=== PATIENT | female | born 1950 | race Caucasian/White ===

== ENCOUNTER 2019-05-15 14:30 | Outpatient (RCR) | payer MEDICARE, OTHER, SELFPAY ==
--- NOTE | 2019-03-03 09:51 | HP.OTEVAL ---
Patient's Visit Information ROCIO YNA is a 69 year old F, referred to Occupational Therapy by Yan Aj MD, with a diagnosis of left wrist fx intraticular. Date of Evaluation: 03/02/19 Occupational Therapist: SHAYNE Mehta/Leigha, CHT - Subjective Subjective: This 69 year old female was seen for OT eval with dx of left wrist fx. pt has sx on 2018 -pt 7 weeks s/p ORIF - pt states she was in soft sx splint for 2 weeks had stiches removed and then was placed in a brace until this week - Pt is concerned with left MF IF and thumb tingling/numb sensation. pt is limited with ADLs and IADLS at this time due to limited ROM and strength. - Pain left wrist Pain Intensity Range: 0, 4 - ROM Wrist: right 60/65 left 30/20 ROM Comments: pt demo left MCP flex 15* less than unaffected - Strength Health Care Law Specialist: right 55# left 5# Lateral Pinch: right 8# left 2# Tripod Pinch: right 10# left 2# - Edema Wrist: right 15cm left 17cm PIP: right 5.5 left MF 6.2 Proximal Phalanx: right 17cm left 18.5cm - Sensation Thumb: right 2.83 left 2.83 Index: right 2.83 left 2.83 Middle: right 2.83 left 3.61 Ring: right 2.83 left 2.83 Little: right 2.83 left 2.83 - Quick DASH-Disab of Arm,Shoulder& Hand Quick DASH Score: 60.0000 - Hand/Wrist Evaluation Total Score of Pain & Functional Sections: 61 - Goals Goal:: PT will demo an increase in segmental paving supervisor strength by 30# to increase independent with basic occupations of daily living to return pt to PLOF by D/C. Pt will demo an increase in lateral and tripod pinch by 4# to increase pts independent with opening baggies, containers at PLOF by D/C. Goal:: Pt will demo an increase in wrist ROM equal to unaffected wrist to return pt to PLOF with grooming, dressing and home mtg tasks by D/C. Goal:: Pt will report pain no greater than 1/10 with use of affected hand with BADLs and IADLs by d/c. Goal:: Pt will demo improvements in sensation throughout the Med. N. distribution testing at monofilament of 2.83 by d/c - Rehabilitation General Assessment: S/P 7 weeks ORIF left radius. Pt demo with weakness, edema, limited ROM of wrist and MCPs. pt demo need for skilled OT services 2x week for 6 weeks to return pt to IND. level with ADLs and IADLS. Today pt was ed.on wrist AROM, PROM, scar mtg, edema control janice. and ed. that therapy will initiate PRE to return pt to PLOF- pt was given handout and demo understanding of ex and agree to POC. Rehabilitation Potential: Good - Anticipated Interventions Anticipated Interventions: A/AAROM/PROM, Strengthening, Sensory Retraining, Modalities, Orthoses - Visit Plan Frequency: 2x /Week Duration: 6 Weeks TEXT: Thank you for the opportunity to evaluate your patient. For Medicare and Medicare HMO plans, please review the plan of care and approve it. It will need to be FAXED BACK to us at [phone] for Medicare purposes. Please let me know if there are questions or concerns regarding this plan of care. Physician Signature: Date:
--- NOTE | 2019-04-04 16:11 | OTREVAL_ITS ---
Yan Aj MD, It has been my pleasure to treat ROCIO YAN over the last 10 visits for left wrist fx intraticular. Please see the progress note below for an update on the occupational therapy plan of care! Subjective: pt arrives states her wrist is doing well and feels she is increasing her ability to use her left hand with tasks Objective/Function: left thumb 3.22 a decline from 2.83. left IF 2.83. left MF 4.08 decline from 3.22. left RF 2.83. left LF 2.83. all other sensation is WNL. wrist ROM 50/40. left neurology epilepsy physician strength 25#. right neurology epilepsy physician strength 60# Plan Plan: cont with PRE- transition pt to HEP Goals - Goals Goal:: PT will demo an increase in neurology epilepsy physician strength by 30# to increase independent with basic occupations of daily living to return pt to PLOF by D/C. Pt will demo an increase in lateral and tripod pinch by 4# to increase pts independent with opening baggies, containers at PLOF by D/C. Goal:: Pt will demo an increase in wrist ROM equal to unaffected wrist to return pt to PLOF with grooming, dressing and home mtg tasks by D/C. Goal:: Pt will report pain no greater than 1/10 with use of affected hand with BADLs and IADLs by d/c. Goal:: Pt will demo improvements in sensation throughout the Med. N. distribution testing at monofilament of 2.83 by d/c Anticipated Interventions Anticipated Interventions: A/AAROM/PROM, Strengthening, Sensory Retraining, Modalities, Orthoses Please do not hesitate to contact me at [phone] by phone or if you have questions or concerns regarding this new plan of care! Sincerely, Nani Dixon, EMRER/L, CHT
--- NOTE | 2019-08-17 16:55 | HP.OTDCSUM_ITS ---
It has been my pleasure to treat ROCIO YAN under orders from Dr. Yan Aj MD, for the diagnosis of left wrist fx intraticular for a total of 13 visit(s). Please see the following information for a summary of their discharge status. pt made good gains with her ROM and strength. was last seen on 05/15/19 and making gains. At this time pt has not scheduled further apts and is d/c with HEP. % Improvement: 80 Objective/Function: left wrist 50/25. pt demo with a decrease in wrist flex- decrease Patient Goals: Regain Mobility, Decrease Swelling/Stiffness, Use Hand/Wrist/Arm Normally Again, Be More Independent in ADLS Goal:: PT will demo an increase in ecclesiastical worker strength by 30# to increase independent with basic occupations of daily living to return pt to PLOF by D/C. Pt will demo an increase in lateral and tripod pinch by 4# to increase pts independent with opening baggies, containers at PLOF by D/C. Goal:: Pt will demo an increase in wrist ROM equal to unaffected wrist to return pt to PLOF with grooming, dressing and home mtg tasks by D/C. Goal:: Pt will report pain no greater than 1/10 with use of affected hand with BADLs and IADLs by d/c. Goal:: Pt will demo improvements in sensation throughout the Med. N. distribution testing at monofilament of 2.83 by d/c Plan: non wt.B of left UE If there are questions or concerns regarding this patient's occupational therap y, please fell free to call me at [phone]. Thank you for the referral of this patient. Sincerely, Nani Dixon, OTR/L, CHT
== END 2019-05-15 19:00 | disposition home or self-care (01) ==
LOC: OT 14:30
PROVIDERS: Family Provider Family Medicine; PCP Family Medicine; Referring Provider Specialist; Visit Provider Specialist
DX: S52.572D Other intraarticular fracture of lower end of left radius, subsequent encounter for closed fracture with routine healing (principal); M25.512 Pain in left shoulder; T84.84XD Pain due to internal orthopedic prosthetic devices, implants and grafts, subsequent encounter
CPT/HCPCS: 97110; 97140; 97166; 97530